=== PATIENT | female | born 1985 | race Caucasian/White ===

== ENCOUNTER 2017-10-26 01:58 | Emergency (ER) | payer BC, OTHER ==
[2017-10-26] MEDS: DIPHTH,PERTUSS(ACELL),TET TOX 0.5 ML DISP.SYRIN. VAX IM (02:57)
== END 2017-10-26 03:28 | disposition home or self-care (01) ==
LOC: ER 01:58
DX: S91.002A Unspecified open wound, left ankle, initial encounter (principal); S90.522A Blister (nonthermal), left ankle, initial encounter; Z23 Encounter for immunization; X58.XXXA Exposure to other specified factors, initial encounter; Y93.89 Activity, other specified; Y92.89 Other specified places as the place of occurrence of the external cause; Y99.8 Other external cause status
CPT/HCPCS: 90471; 90715; 99283-25

== ENCOUNTER 2018-01-15 00:36 | Emergency (ER) | payer BC | END 2018-01-15 01:36 | disposition home or self-care (01) | LOC: ER 00:36 | DX: S90.31XA Contusion of right foot, initial encounter (principal); X58.XXXA Exposure to other specified factors, initial encounter; Y93.89 Activity, other specified; Y92.89 Other specified places as the place of occurrence of the external cause; Y99.8 Other external cause status | CPT/HCPCS: 99281 ==

== ENCOUNTER 2018-04-16 22:31 | Emergency (ER) | payer BC ==
[~2018-04-16] VITALS: Ht 160 cm; Wt 74.8 kg
[~2018-04-16 22:31] MED LIST: NORG1TAB35 PO
[2018-04-16 22:57] VITALS: BP 113/55
--- NOTE | 2018-04-17 00:11 | RAD ---
Right lower extremity venous duplex study 04/16/2018 Clinical History: Right calf pain. Technique: Using a combination of real time ultrasound imaging and color-flow and pulse Doppler imaging techniques along with graded compression and augmentation, duplex evaluation of the deep venous system of the right lower extremity was performed. Multiple images were obtained. Findings: There is no sonographic evidence of deep venous thrombosis involving the visualized deep venous structures of right lower extremity. Impression: Negative study. Electronically signed by: Raymundo Varghese MD (04/17/2018 12:07 AM) [facility]
--- NOTE | 2018-04-17 00:18 | PHYS DOC ---
Past Medical History Past Medical History: No Pertinent History Past Surgical History: No Surgical History Alcohol Use: None Drug Use: None Adult General Chief Complaint Chief Complaint: ITCHING HPI HPI Patient is a 32 year old [f__sex] who presents with [] Review of Systems Review of Systems Constitutional: Denies fever or chills [] Eyes: Denies change in visual acuity, redness, or eye pain [] HENT: Denies nasal congestion or sore throat [] Respiratory: Denies cough or shortness of breath [] Cardiovascular: No additional information not addressed in HPI [] GI: Denies abdominal pain, nausea, vomiting, bloody stools or diarrhea [] : Denies dysuria or hematuria [] Musculoskeletal: Denies back pain or joint pain [] Integument: Denies rash or skin lesions [] Neurologic: Denies headache, focal weakness or sensory changes [] Endocrine: Denies polyuria or polydipsia [] All other systems were reviewed and found to be within normal limits, except as documented in this note. Allergies Allergies Allergies Coded Allergies Type Severity Reaction Last Updated Verified No Known Drug Allergies 02/07/15 No Physical Exam Physical Exam Constitutional: Well developed, well nourished, no acute distress, non-toxic appearance. [] HENT: Normocephalic, atraumatic, bilateral external ears normal, oropharynx moist, no oral exudates, nose normal. [] Eyes: PERRLA, EOMI, conjunctiva normal, no discharge. [] Neck: Normal range of motion, no tenderness, supple, no stridor. [] Cardiovascular:Heart rate regular rhythm, no murmur [] Lungs & Thorax: Bilateral breath sounds clear to auscultation [] Abdomen: Bowel sounds normal, soft, no tenderness, no masses, no pulsatile masses. [] Skin: Warm, dry, no erythema, no rash. [] Back: No tenderness, no CVA tenderness. [] Extremities: No tenderness, no cyanosis, no clubbing, ROM intact, no edema. [] Neurologic: Alert and oriented X 3, normal motor function, normal sensory function, no focal deficits noted. [] Psychologic: Affect normal, judgement normal, mood normal. [] Current Patient Data Vital Signs Vital Signs Date Time Temp Pulse Resp B/P (MAP) Pulse Ox O2 Delivery O2 Flow Rate FiO2 9/17/18 22:57 97.9 68 18 113/55 (74) 98 Room Air 97.9 EKG EKG [] Radiology/Procedures Radiology/Procedures [] Course & Med Decision Making Course & Med Decision Making Pertinent Labs and Imaging studies reviewed. (See chart for details) [] Dragon Disclaimer Dragon Disclaimer This electronic medical record was generated, in whole or in part, using a voice recognition dictation system. Departure Departure Impression: Primary Impression: Allergic reaction to drug Additional Impressions: Itching due to drug Pain of right calf Disposition: HOME, SELF-CARE Condition: STABLE Referrals: UNKNOWN PCP NAME (PCP) Patient Instructions: Drug Allergy, [id number] Additional Instructions: Stop using neosporin. May apply topical hydrocortisone cream or benadryl cream to itchy area for relief of itching. Follow up with your primary care doctor later this week if symptoms persist. Return to the ER if your symptoms worsen. Problem Qualifiers Primary Impression: Allergic reaction to drug Encounter type: initial encounter Qualified Codes: T78.40XA - Allergy, unspecified, initial encounter [facility] Apr 17, 2018 00:18
== END 2018-04-17 00:20 | disposition home or self-care (01) ==
LOC: ER 22:31
DX: T36.8X5A Adverse effect of other systemic antibiotics, initial encounter (principal); M79.661 Pain in right lower leg; Y92.89 Other specified places as the place of occurrence of the external cause
CPT/HCPCS: 93971; 99284